=== PATIENT | male | born 1980 | race Caucasian/White ===

== ENCOUNTER 2021-04-26 18:26 | Observation (INO) ==
[2021-04-26] MEDS ORDERED: KETOROLAC 30 MG/ML VIAL IV ONE (18:46)
[2021-04-26] MEDS ORDERED: ONDANSETRON 4 MG/2 ML VIAL IV ONE (18:46)
[2021-04-26] MEDS ORDERED: 0.9 % SODIUM CHLORIDE 1,000 ML IV ONE (18:46)
--- NOTE | 2021-04-26 18:51 | Emergency Department Note ---
Male Urogenital HPI General Chief complaint: Flank Pain Stated complaint: flank pain Time Seen by Provider: 04/26/21 18:40 Source: patient Mode of arrival: ambulatory Limitations: no limitations History of Present Illness HPI Narrative: 40-year-old male presents with right flank pain. States he was diagnosed with a 8/2 mm right-sided kidney stone 3 days ago at [facility]. He states he was told to come to the [facility] see department if he did not feel better and passed the stone in 2 or 3 days. Patient continues to have flank pain on the right side sharp in nature. Nothing makes it better or worse. No radiation of the pain. He does have his stated nausea and vomiting. He has also had some subjective fevers and chills. Patient has long history of kidney stones. Patient ran out of pain medication yesterday. [facility] emergency department note from 04/23/[address] scan of abdomen pelvis with contrast performed on the day shows that the patient has an 8.5 mm right mid ureteral stone with hydronephrosis and hydroureter. Related Data Home Medications Medication Instructions Recorded Confirmed No Known Home Meds 04/26/21 04/26/21 Allergies Allergy/AdvReac Type Severity Reaction Status Date / Time No Known Drug Allergies Allergy Unverified 04/26/21 18:32 Review of Systems ROS ROS Narrative: Narrative: All systems ED: reviewed and negative except as stated. Constitutional: Denies fever, chills and sweats Eyes: Denies vision change Cardiovascular: Denies chest pain Respiratory: Denies shortness of breath and cough Gastrointestinal: Reports abdominal pain, nausea and vomiting Genitourinary: Reports hematuria and other (Right flank pain) Musculoskeletal: Denies back pain and joint pain Integumentary: Denies rash Neurological: Denies headache and dizziness Psychiatric: Denies anxiety, suicidal thoughts and homicidal thoughts Endocrine: Denies polydipsia and polyuria Hematological/Lymphatic: Denies easy bleeding and easy bruising PFSH Narrative Patient History Narrative: Narrative: Medical/Surgical/Family History All Active Problems (Updated 04/26/21 @ 20:33 by Emir May MD) Ureterolithiasis (Acute) Social History Smoking Status: Current every day smoker Exam Narrative Narrative: Vital Signs reviewed. Constitutional: Awake alert no acute distress well-nourished well-developed Head: Normocephalic, atraumatic Eyes: PERRLA, EOMI, no conjunctivitis Oropharynx: moist oral mucosa, no edema, no erythema, no exudate Neck: Supple, no lymphadenopathy, no JVD Lungs: Breathing unlabored, lungs clear Cardiac: Regular rate and rhythm, normal distal pulses, GI: Soft mild right flank tenderness nondistended no guarding no rebound Musculoskeletal: No tenderness no deformities, no edema, full range of motion Back: no CVA or midline tenderness Neuro: Awake alert, cranial nerves II through XII grossly intact, no focal motor or sensory deficits Psychiatric: Normal mood and affect Skin: Warm dry no rash, cap refill less than 2 seconds General Limitations: no limitations Course Consultations Consultation #1: Case discussed with urologist, Dr. Juarez who agrees to see the patient in consultation. He request the hospitalist be consulted to admit the patient. Time: 20:32 Consultation #2: Case discussed with hospitalist, Dr. Bell who agrees admit patient with consultation to urology. Time: 21:01 Vital Signs Vital signs: Vital Signs Temperature 98.6 F 04/26/21 18:27 Pulse Rate 75 04/26/21 18:27 Respiratory Rate 8 L 04/26/21 18:27 Blood Pressure 152/83 04/26/21 18:27 Pulse Oximetry (%) 97 04/26/21 18:27 Temperature 98.6 F 04/26/21 18:27 Pulse Rate 49 L 04/26/21 20:32 Respiratory Rate 8 L 04/26/21 18:27 Blood Pressure 119/60 04/26/21 20:32 Pulse Oximetry (%) 96 04/26/21 20:32 [facility] MDM Narrative Medical decision making narrative: Narrative: Differential Diagnosis Differential Diagnosis: Kidney stone, pyelonephritis, UTI Lab Data Result diagrams: 04/26/21 19:00 04/26/21 19:00 Labs: Lab Results 04/26/21 04/26/21 04/26/21 Range/Units 18:40 19:00 19:00 WBC 9.4 (4.5-11.0) K/mcL RBC 4.43 L (4.50-5.90) M/mcL Hgb 14.3 (13.5-16.5) g/dL Hct 40.1 L (41.0-55.0) % MCV 90.5 (80.0-100.0) fL MCH 32.3 (26.0-34.0) pg MCHC 35.7 (31.0-36.0) g/dL RDW 11.5 (11.5-14.5) % Plt Count 170 (140-440) K/mcL MPV 11.4 H (7.4-10.4) fL Seg Neutrophils % 64 (38-78) % Lymphocytes % 9 L (15-49) % Monocytes % (Manual) 24 H (1-12) % Eosinophils % (Manual) 3 (0-7) % Platelet Estimate Normal (Normal) RBC Morphology Normal (Normal) Sodium 136 (133-145) mmol/L Potassium 3.9 (3.3-5.1) mmol/L Chloride 104 (96-108) mmol/L Carbon Dioxide 23 (22-30) mmol/L Anion Gap 9.0 (8.0-16.0) BUN 21 H (6-20) mg/dL Creatinine 1.7 H (0.7-1.2) mg/dL GFR Calculation 49 Glucose 102 (70-105) mg/dL Calcium 8.6 (8.6-10.4) mg/dL Total Bilirubin 1.3 H (0.1-1.0) mg/dL AST 13 (<40) U/L ALT 17 (<40) U/L Alkaline Phosphatase 76 (39-117) U/L Total Protein 6.9 (5.9-8.4) gm/dL Albumin 3.7 (3.2-5.2) gm/dL Globulin 3.2 (2.2-3.7) gm/dL Albumin/Globulin Ratio 1.2 (1.0-2.3) Urine Color Davina Urine Appearance Clear (Clear) Urine pH 6.0 (5.0-9.0) Ur Specific [place] 1.028 (1.000-1.035) Urine Protein Negative (Negative) mg/dL Urine Glucose (UA) Negative (Negative) mg/dL Urine Ketones 80 A (Negative) mg/dL Urine Occult Blood 0.20 (Negative) mg/dL Urine Nitrate Negative (Negative) Urine Bilirubin Negative (Negative) mg/dL Urine Urobilinogen 4.0 A mg/dL Ur Leukocyte Esterase 25 A (Negative) /ug Urine RBC 32 H (0-3) /hpf Urine WBC 5 H (0-4) /hpf Ur Squamous Epith Cells 0 (0-4) /hpf Calcium Oxalate Crystal Many A (None) /hpf Urine Bacteria None (0) /hpf Urine Mucus Few A (None) /hpf Ur Culture Indicated? No Discharge Plan Patient/Caregiver Discharge Instructions Pt seen by [facility] only: No Clinical Impression: Ureterolithiasis Patient Disposition: Xfer As Outpt/Obs ([facility]) Condition: Fair Follow up with: No,PCP [Primary Care Provider] - Prescriptions: No Action No Known Home Meds RF: 0
[2021-04-26 19:43] LABS: Hematocrit 40.1 % (41.0-55.0); Hemoglobin 14.3 g/dL (13.5-16.5); Mean Cell Volume 90.5 fL (80.0-100.0); Mean Corpuscular HGB Conc 35.7 g/dL (31.0-36.0); Mean Platelet Volume 11.4 fL (7.4-10.4); Platelet Count 170 K/mcL (140-440); RBC 4.43 M/mcL (4.50-5.90); Red Cell Distribution Width 11.5 % (11.5-14.5); WBC 9.4 K/mcL (4.5-11.0)
[2021-04-26 19:52] LABS: Appearance,Urine CLEAR (Clear); Bilirubin,Urine Negative (Negative); Calcium Oxalate Crystals,Urine MANY /hpf; Color,Urine AMBER; Culture Indicated,Urine No; Glucose,Urine (UA) Negative (Negative); Ketones,Urine 80 mg/dL (Negative); Leukocyte Esterase,Urine 25 /ug (Negative); Mucus,Urine FEW /hpf; Nitrate,Urine Negative (Negative); Protein,Urine Negative (Negative); Specific Gravity,Urine 1.028 (1.000-1.035); Urine RBC 32 /hpf (0-3); Urine Squamous Epithelial Cell 0 /hpf (0-4); Urine WBC 5 /hpf (0-4)
[2021-04-26 20:09] LABS: Eosinophils % (Manual) 3 % (0-7); Lymphocytes % 9 % (15-49); Monocytes % (Manual) 24 % (1-12); Platelet Estimate NORMAL (Normal); RBC Morphology NORMAL (Normal); Segmented Neutrophils % 64 % (38-78)
[2021-04-26 20:20] LABS: ALT/SGPT 17 U/L (<40); AST/SGOT 13 U/L (<40); Albumin 3.7 gm/dL (3.2-5.2); Albumin/Globulin Ratio 1.2 (1.0-2.3); Alkaline Phosphatase 76 U/L (39-117); Bilirubin,Total 1.3 mg/dL (0.1-1.0); Blood Urea Nitrogen 21 mg/dL (6-20); Calcium 8.6 mg/dL (8.6-10.4); Carbon Dioxide 23 mmol/L (22-30); Chloride 104 mmol/L (96-108); Globulin 3.2 gm/dL (2.2-3.7); Glomerular Filtration Rate 49; Glucose 102 mg/dL (70-105)
--- NOTE | 2021-04-26 22:13 | Internal Med History&Physical ---
HPI History of Present Illness Patient information: Note initiated : 04/26/21 at 10:07 pm Service Date, if different from initiated Date Chief Complaint: [] Chief complaint: Right Flank pain for 3 days. History of present illness: Patient: Loi Forbes 40 y/o M admitted on for right flank pain for 3 days. He has Hx of Kidney stone in past. Pain started chris and progressively got worse. He had nausea and vomited x 1 also had hematuria. No fever, chills. His CT scan of A/p at [facility] today reportedly showed 8mm obstructed mid ureter stone with Mod hydronephrosis. Urology has been consulted and plan for Cystoscopy and Stent placement in am. Pt has no hx of lung or heart disease. He smokes a pack a day and drinks occasionally. Review of Systems All systems: reviewed and no additional remarkable complaints except as stated PFSH PFSH All Active Problems Ureterolithiasis (Acute) MEDS/ALLERGIES Home Medications and Allergies Home Medications Medication Instructions Recorded Confirmed Type No Known Home Meds 04/26/21 04/26/21 History Allergies Allergy/AdvReac Type Severity Reaction Status Date / Time No Known Drug Allergies Allergy Unverified 04/26/21 18:32 EXAM Constitutional Vitals: Temp Pulse Resp BP Pulse Ox 98.6 F 60 8 L 139/75 96 04/26/21 18:27 04/26/21 22:02 04/26/21 18:27 04/26/21 22:02 04/26/21 22:02 General appearance: cooperative and no acute distress Head Head exam: Present atraumatic, normal inspection and normocephalic Eye Eye exam: Present EOMI, normal appearance and PERRL Neck Neck exam: Present full ROM and normal inspection Respiratory Respiratory exam: Present normal respiratory exam and CTAB Cardiovascular Cardiovascular exam: Present normal rate and rhythm, +S1 and +S2; Absent diast olic murmur and systolic murmur GI/Abdominal GI/Abdominal exam: Present normal bowel sounds and soft; Absent hernia, mass, rebound and tenderness Extremities Exam Extremities exam: Present full ROM, normal capillary refill and normal inspection; Absent calf tenderness and joint swelling Back Exam Back exam: Present full ROM Neurological Exam Neurological exam: Present alert, CN II-XII intact, oriented X3 and reflexes normal Psychiatric Psychiatric exam: Present normal affect and normal mood Skin Skin exam: Present dry, normal color and warm DATA Data Completed and Pending Labs: Labs from last 24 hours 04/26/21 04/26/21 04/26/21 19:00 19:00 18:40 WBC 9.4 RBC 4.43 L Hgb 14.3 Hct 40.1 L MCV 90.5 MCH 32.3 MCHC 35.7 RDW 11.5 Plt Count 170 MPV 11.4 H Seg Neutrophils % 64 Lymphocytes % 9 L Monocytes % (Manual) 24 H Eosinophils % (Manual) 3 Platelet Estimate Normal RBC Morphology Normal Sodium 136 Potassium 3.9 Chloride 104 Carbon Dioxide 23 Anion Gap 9.0 BUN 21 H Creatinine 1.7 H GFR Calculation 49 Glucose 102 Calcium 8.6 Total Bilirubin 1.3 H AST 13 ALT 17 Alkaline Phosphatase 76 Total Protein 6.9 Albumin 3.7 Globulin 3.2 Albumin/Globulin Ratio 1.2 Urine Color Davina Urine Appearance Clear Urine pH 6.0 Ur Specific [place] 1.028 Urine Protein Negative Urine Glucose (UA) Negative Urine Ketones 80 A Urine Occult Blood 0.20 Urine Nitrate Negative Urine Bilirubin Negative Urine Urobilinogen 4.0 A Ur Leukocyte Esterase 25 A Urine RBC 32 H Urine WBC 5 H Ur Squamous Epith Cells 0 Calcium Oxalate Crystal Many A Urine Bacteria None Urine Mucus Few A Ur Culture Indicated? No A/P Narrative A/P Narrative: 40 years old male with known Hx of kidney stones presented with R flank pain for 3 dasys. # 8mm Obstructed R Ureter Kidney stone - IVF, Pain medication, Flomax. - NPO after midnight. Urology consulted for Cystoscopy and Stent in am. # BLANCA with Cr 1.7. No Know hx of CKD - UA unremarkable. - Cont IVF and Follow renal panel. Avoid Nephrotoxic agents. DVT Ppx. SCD Code. full Dispo: Observation. Plan of care d/ pt and his & CREDIT INTERN. Time Spent With Patient Time: Total time spent is greater than 50% in coordination of care (as doc umented) at patient's floor/unit and/or counseling patient: Total time spent with greater than 50% in coordination of care (as documented) at patient's floor/unit and/or counseling patient:: 15 - 24 minutes
[2021-04-26] MEDS ORDERED: ONDANSETRON 4 MG ODT TABLET SL PRN (22:30)
[2021-04-26] MEDS ORDERED: ONDANSETRON 4 MG/2 ML VIAL IV PRN (22:30)
[2021-04-26] MEDS ORDERED: ACETAMINOPHEN 325 MG TABLET PO PRN (22:30)
[2021-04-26] MEDS ORDERED: ZOLPIDEM 5 MG TABLET PO PRN (22:30)
[2021-04-26] MEDS ORDERED: TAMSULOSIN 0.4 MG CAPSULE PO ONE ×2 (22:35→23:01)
[2021-04-26] MEDS ORDERED: oxyCODONE HCL 5 MG TABLET PO ONE (22:56)
[2021-04-26] MEDS: oxyCODONE HCL 5 MG TABLET PO PRN (22:57)
[2021-04-26] MEDS: 0.45 % SODIUM CHLORIDE 1,000 ML IV SCH (22:57)
[2021-04-26] MEDS: TAMSULOSIN 0.4 MG CAPSULE PO SCH (22:59)
[2021-04-26] MEDS: HYDROmorphone 1 MG/ML SYRINGE IV PRN (23:22)
[2021-04-26] MEDS ORDERED: HYDROmorphone 1 MG/ML SYRINGE ONE (23:23)
[2021-04-27] MEDS ORDERED: HYDROmorphone 1 MG/ML SYRINGE ONE (03:28)
[2021-04-27] MEDS: HYDROmorphone 1 MG/ML SYRINGE IV PRN ×3 (03:28→09:26)
[2021-04-27] MEDS: 0.9 % SODIUM CHLORIDE 10 ML SYRINGE IV SCH ×3 (05:46→22:49)
[2021-04-27] MEDS: 0.45 % SODIUM CHLORIDE 1,000 ML IV SCH ×4 (06:43→22:49)
[2021-04-27 07:33] LABS: Blood Urea Nitrogen 24 mg/dL (6-20); Calcium 8.1 mg/dL (8.6-10.4); Carbon Dioxide 21 mmol/L (22-30); Chloride 103 mmol/L (96-108); Glomerular Filtration Rate 46; Glucose 81 mg/dL (70-105)
[2021-04-27] MEDS ORDERED: IPRATROPIUM/ALBUTEROL 3 ML AMPUL.NEB NEB PRN ×2 (09:21→13:23)
--- NOTE | 2021-04-27 09:52 | EKG ---
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 Measurements Intervals [place] Rate: 49 P: 21 [place]: 172 QRS: 12 QRSD: 92 T: 13 QT: 420 QTc: 380 Interpretive Statements SINUS BRADYCARDIA ST ELEV, PROBABLE NORMAL EARLY REPOL PATTERN NO PRIOR TRACING FOR COMPARISON ([facility] not responding) NORMAL TRACING Electronically Signed On 04-27-2021 9:52:25 PDT by Brendan Lockett M.D. /[email or web address]/[email or web address]/[id number]
[2021-04-27] MEDS ORDERED: ceFAZolin 2 GM in DEXTROSE 5% IN WATER 50 ML IV SCH (12:00)
[2021-04-27] MEDS ORDERED: GLYCOPYRROLATE 0.2 MG/ML VIAL IV ONE (12:17)
[2021-04-27] MEDS ORDERED: LIDOCAINE HCL/PF 100 MG/5 ML SYRINGE IV ONE (12:17)
[2021-04-27] MEDS ORDERED: MIDAZOLAM 2 MG/2 ML VIAL ONE (12:17)
[2021-04-27] MEDS ORDERED: ONDANSETRON 4 MG/2 ML VIAL ONE (12:17)
[2021-04-27] MEDS ORDERED: fentaNYL 250 MCG/5 ML VIAL IV ONE (12:17)
[2021-04-27] MEDS ORDERED: DEXAMETHASONE 10 MG/ML VIAL ONE (12:17)
[2021-04-27 12:27] LABS: Prothrombin Time 13.5 sec (11.9-14.5)
[2021-04-27] MEDS ORDERED: IOVERSOL 20 ML VIAL IJ ONE (12:52)
--- NOTE | 2021-04-27 13:15 | Brief Operative Note ---
Brief Operative Note Date of procedure: 04/27/21 Pre-op diagnosis: Right ureteral stone Post-op diagnosis: other (Right renal stone) Procedure: Right ureteroscopy and stent placement Grafts/Implants: Yes Anesthesia: GETA Findings: Large upper ureteral stone pushed back up into the upper pole of the kidney Complications: none Surgeon: Gilles Juarez Estimated blood loss (cc): 0 Tourniquet Time (Minutes): 0 Specimens Removed/Pathology: none sent Condition: stable Disposition: PACU
--- NOTE | 2021-04-27 13:20 | Operative Note ---
Operative Note Operative Note: Preop diagnosis--right ureteral stone Surgeon--Gilles Juarez Operation performed--right ureteroscopy with stent placement Postop diagnosis --right renal calculus Date of operation and dictation--04/27/2021 Anesthesia--General Complications--none Specimen--none Drain--6 Nicaraguan by 24 cm double-J stent with string Blood loss--none Indication--this 40-year-old male has a history of stones and had recent onset of right-sided flank pain which was severe. He was admitted for pain control and is in at this time for intervention to consist of stenting at the minimum or total lithotripsy of the stone as best case. It is an 8.5 mm stone in the right upper third ureter Description--the patient was placed on the operating table in a supine position. A timeout was called at which time we confirmed the patient, procedure, position and presence of antibiotic. He was placed in a lithotomy position after satisfactory induction of general anesthesia. After standard prep and drape a 21 Nicaraguan cystoscope was advanced into the bladder under direct vision. The urethra was normal prostate showed mild enlargement of the middle lobe. The bladder was entered and the right ureteral orifice was identified. It was relatively close to the bladder neck and a somewhat difficult to cannulate but ultimately an open tip catheter was feet fed into the orifice and up to the level of the stone. Contrast was injected and the stone was identified with significant dilation of the proximal ureter. And safety tip guidewire was advanced through the open tip catheter and in an attempt to bypass the stone the stone was dislodged and moved into the upper portion of the kidney in a calyx that was at an angle to the renal pelvis. The semirigid scope was then advanced over a second guidewire fed through the ureteroscope. It was advanced up to where the stone had been and up into the kidney. The stone was not identified and at that point the ureter was quite stenotic and it was difficult to move in different angles and there was a significant resistance upon slow withdrawal of the scope. At that point it was elected not to pursue the stone any further and the ureteroscope was removed along with the second guidewire. A 6 Nicaraguan by 24 cm double-J stent with string was advanced over the guidewire and ultimately advanced up into the kidney where a good coil was seen upon slow withdrawal of the wire. Once the wire was completely withdrawn there was good coil in the bladder. At that point the bladder was emptied and the scope was removed. The final position of the stent was confirmed on x-ray and the string was shortened to just outside the urethral meatus.
[2021-04-27] MEDS ORDERED: MEPERIDINE 25 MG/ML VIAL IV PRN (13:23)
[2021-04-27] MEDS ORDERED: ePHEDrine 50 MG/ML AMPUL IV PRN (13:23)
[2021-04-27] MEDS ORDERED: diphenhydrAMINE 50 MG/ML VIAL IV PRN (13:23)
[2021-04-27] MEDS ORDERED: ATROPINE SULFATE 0.4 MG/ML VIAL IV PRN (13:23)
[2021-04-27] MEDS ORDERED: FLUMAZENIL 0.1 MG/ML ML IV PRN (13:23)
[2021-04-27] MEDS ORDERED: METHOCARBAMOL 1,000 MG/10 ML VIAL IV PRN (13:23)
[2021-04-27] MEDS ORDERED: NALOXONE HCL 0.4 MG/ML VIAL IV PRN (13:23)
[2021-04-27] MEDS ORDERED: ONDANSETRON 4 MG/2 ML VIAL IV PRN (13:23)
[2021-04-27] MEDS ORDERED: fentaNYL 100 MCG/2 ML VIAL IV PRN (13:23)
[2021-04-27] MEDS ORDERED: ACETAMINOPHEN 1,000 MG/100 ML BAG IV ONE (13:23)
[2021-04-27] MEDS ORDERED: LACTATED RINGERS 1,000 ML IV SCH (13:30)
[2021-04-27] MEDS ORDERED: 0.9 % SODIUM CHLORIDE 10 ML SYRINGE IV SCH (14:00)
--- NOTE | 2021-04-27 16:58 | Internal Med Progress Note ---
SUBJECTIVE Subjective Patient information: Note initiated : 04/27/21 at 4:55 pm Service Date, if different from initiated Date: Patient: Loi Forbes 40 y/o M admitted on 04/26/21 for Flank Pain . Chief Complaint: Flank pain Interval history: Patient is feeling better. Her pain is well controlled. Status post cystoscopy and stent placement. Creatinine went up to 1.8 from 1.7. No nausea vomiting Constitutional Vitals: Vital Signs Temp Pulse Resp BP Pulse Ox 98.0 F 58 L 18 127/63 96 04/27/21 16:00 04/27/21 16:00 04/27/21 16:00 04/27/21 16:00 04/27/21 16:00 Period Temp Pulse Resp BP Sys/Ybarra Pulse Ox Last 24 Hr 97.9 F-98.6 F 49-75 8-20 107-155/57-92 95-99 Intake and Output 04/27/21 04/27/21 04/27/21 05:59 13:59 21:59 Intake Total 0 1571 1100 Output Total 175 350 Balance -175 1221 1100 Weight 98.157 kg Intake & Output: Intake & Output 04/27/21 04/27/21 04/27/21 05:59 13:59 21:59 Intake Total 0 1571 1100 Output Total 175 350 Balance -175 1221 1100 Weight 98.157 kg Intake: IV 1021 1100 Sodium Chloride 0.45% 1,000 ml 971 1000 @ 125 mls/hr IV .Q8H NAVEED Rx#: [id number] Ancef 2 gm In Dextrose 5% in 50 Water 50 ml @ 100 mls/hr IV PREOP NAVEED Rx#:[id number] Oral 0 IV - Manual Only 550 Output: Void Amount 175 350 Other: Urine Appearance Clear Hematuria Small Blood Clots Urine Color Light Davina Bright Red General appearance: cooperative and no acute distress Head Head exam: Present atraumatic, normal inspection and normocephalic Eye Eye exam: Present EOMI, normal appearance and PERRL Neck Neck exam: Present full ROM and normal inspection Respiratory Respiratory exam: Present normal respiratory exam and CTAB Cardiovascular Cardiovascular exam: Present normal rate and rhythm, +S1 and +S2; Absent diastolic murmur and systolic murmur GI/Abdominal GI/Abdominal exam: Present normal bowel sounds and soft; Absent hernia, mass, rebound and tenderness Extremities Exam Extremities exam: Present full ROM, normal capillary refill and normal inspection; Absent calf tenderness and joint swelling Back Exam Back exam: Present full ROM Neurological Exam Neurological exam: Present alert, CN II-XII intact, oriented X3 and reflexes normal Psychiatric Psychiatric exam: Present normal affect and normal mood Skin Skin exam: Present dry, normal color and warm OBJ DATA Labs CBC & Chem 7: 04/26/21 19:00 04/27/21 05:33 Labs: Abnormal Lab Results 04/27/21 04/26/21 04/26/21 05:33 19:00 19:00 RBC 4.43 L Hct 40.1 L MPV 11.4 H Lymphocytes % 9 L Monocytes % (Manual) 24 H Carbon Dioxide 21 L BUN 24 H 21 H Creatinine 1.8 H 1.7 H Calcium 8.1 L Total Bilirubin 1.3 H Urine Ketones Urine Urobilinogen Ur Leukocyte Esterase Urine RBC Urine WBC Calcium Oxalate Crystal Urine Mucus 04/26/21 18:40 RBC Hct MPV Lymphocytes % Monocytes % (Manual) Carbon Dioxide BUN Creatinine Calcium Total Bilirubin Urine Ketones 80 A Urine Urobilinogen 4.0 A Ur Leukocyte Esterase 25 A Urine RBC 32 H Urine WBC 5 H Calcium Oxalate Crystal Many A Urine Mucus Few A Meds: Medications Acetaminophen (Acetaminophen 325 Mg Tablet) 650 mg PO Q6HP PRN; Protocol PRN Reason: Per Pain Protocol/Fever > 101 Hydromorphone HCl (Hydromorphone 1 Mg/Ml Syringe) 1 mg IV Q2HP PRN; Protocol PRN Reason: Per Pain Protocol Last Admin: 04/27/21 09:26 Dose: 1 mg Documented by: Sodium Chloride (Sodium Chloride 0.45%) 1,000 mls @ 125 mls/hr IV .Q8H [facility] Last Infusion: 04/27/21 16:28 Dose: Infused Documented by: Cefazolin Sodium 2 gm/ (Dextrose) 50 mls @ 100 mls/hr IV PREOP NAVEED; Protocol Stop: 04/27/21 17:00 Last Infusion: 04/27/21 12:52 Dose: Infused Documented by: Ondansetron HCl (Ondansetron 4 Mg/2 Ml Vial) 4 mg IV Q6HP PRN PRN Reason: Nausea And Vomiting Ondansetron HCl (Ondansetron 4 Mg Odt Tablet) 4 mg SL Q6HP PRN PRN Reason: Nausea And Vomiting Oxycodone HCl (Oxycodone Hcl 5 Mg Tablet) 5 mg PO Q4HP PRN; Protocol PRN Reason: Per Pain Protocol Last Admin: 04/26/21 22:57 Dose: 5 mg Documented by: Pneumococcal Polyvalent Vaccine (Pneumococcal 23-Armida P-Sac Vac 0.5 Ml Syringe) 0.5 ml IM .ONCE ONE Stop: 04/28/21 10:01 Sodium Chloride (0.9 % Sodium Chloride 10 Ml Syringe) 10 ml IV Q8 [facility] Last Admin: 04/27/21 14:15 Dose: Not Given Documented by: Sodium Chloride (0.9 % Sodium Chloride 10 Ml Syringe) 5 ml IV Q8 [facility] Last Admin: 04/27/21 14:15 Dose: Not Given Documented by: Tamsulosin HCl (Tamsulosin 0.4 Mg Capsule) 0.8 mg PO HS [facility] Last Admin: 04/26/21 22:59 Dose: 0.8 mg Documented by: Zolpidem Tartrate (Zolpidem 5 Mg Tablet) 5 mg PO HSP PRN PRN Reason: Insomnia A/P Narrative A/P Narrative: 40 years old male with known Hx of kidney stones presented with R flank pain for 3 dasys. # 8mm Obstructed R Ureter Kidney stone - IVF, Pain medication, Flomax. - S/p right ureteroscopy with 6 Bangladeshi by 24 cm double-J stent with string placement 04/27 - Pain control and OP follow up with # BLANCA with Cr 1.7. No Know hx of CKD - Cr went up to 1.8. Not peaked yet. - UA unremarkable. - Cont IVF and Follow renal panel. Avoid Nephrotoxic agents. - Repeat BMP in am. DVT ppx. Ambulation Code. Full Dispo . Home if renal function improved. Time Spent With Patient Time: Total time spent is greater than 50% in coordination of care (as documented) at patient's floor/unit and/or counseling patient: QUALITY VTE Deep Vein Thrombosis/Pulmonary Embolism Present on Admission: No
[2021-04-27] MEDS ORDERED: NICOTINE 14 MG PATCH TOPICAL ONE (17:25)
--- NOTE | 2021-04-27 18:10 | XRay Report ---
CLINICAL INFORMATION: Right ureteroscopy with stent placement COMPARISON: None. FINDINGS: Single digital radiograph of the OR shows a proximal end of a right pigtail catheter overlying the right upper collecting system. A small amount of contrast present in the right upper collecting system but nondiagnostic IMPRESSION: Right ureteral stent in place. Total fluoroscopy time 1.1 minutes. Interpreted and Authenticated by: Yayo Richter 04/27/21
[2021-04-27] MEDS: oxyCODONE HCL 5 MG TABLET PO PRN (19:37)
[2021-04-27] MEDS: TAMSULOSIN 0.4 MG CAPSULE PO SCH (21:52)
[2021-04-28] MEDS: 0.45 % SODIUM CHLORIDE 1,000 ML IV SCH (01:39)
[2021-04-28] MEDS: oxyCODONE HCL 5 MG TABLET PO PRN (04:28)
[2021-04-28] MEDS: 0.9 % SODIUM CHLORIDE 10 ML SYRINGE IV SCH (06:07)
[2021-04-28 07:18] LABS: Blood Urea Nitrogen 18 mg/dL (6-20); Calcium 8.5 mg/dL (8.6-10.4); Carbon Dioxide 21 mmol/L (22-30); Chloride 104 mmol/L (96-108); Glomerular Filtration Rate 83; Glucose 110 mg/dL (70-105)
--- NOTE | 2021-04-28 08:51 | Discharge Summary ---
Discharge Provider Provider Patient information: Note initiated : 04/28/21 at 8:46 am Service Date, if different from initiated Date: Patient: oLi Forbes 40 y/o M admitted on 04/26/21 for Flank Pain . Chief Complaint: Flank pain, Kidney stone Date of admission: 04/26/21 22:28 Discharge date: 04/28/21 Primary care physician: PCP No Consults: 04/26/21 Consult to Physician [CONS] Stat Comment: Consulting Provider: Papa Mcnally Reason For Exam: Physician to Consult 04/26/21 20:53 Consult to Physician [CONS] Routine Comment: Consulting Provider: Gilles Juarez Reason For Exam: Physician to Consult Discharge Meds Discharge Medications Home Medications tamsulosin [Flomax] 0.8 mg PO QHS #60 cap 04/27/21 [Rx Last Taken Unknown] oxycodone 5 mg PO Q4HP PRN #12 tab 04/28/21 [Rx Last Taken Unknown] tamsulosin 0.8 mg PO HS #15 cap 04/28/21 [Rx Last Taken Unknown] COURSE Hospital Course Hospital course: 40 years old male with known Hx of kidney stones presented with R flank pain for 3 dasys. # 8mm Obstructed R Ureter Kidney stone - Treated with IVF, Pain medication, Flomax. - S/p right ureteroscopy with 6 Hungarian by 24 cm double-J stent with string placement 04/27 - Pain control and OP follow up with in 1-2 weeks as directed by urologist. # BLANCA with peaked Cr 1.8. No Know hx of CKD - UA unremarkable. - Treated IVF and . Cr normalized to 1.1 in am BUN 18. Avoid NSAIDs. OP follow up. Disposition: Patient discharged home Condition on discharge: Hemodynamically stable. Tolerated p.o. Discharge activity: As tolerated Discharge diet: Healthy, low-fat Discharge medication: See med reconciliation form Discharge follow-up: Primary care physician within 1 week for post hospital follow-up. Urologist in 1 to 2 weeks. Discharge diagnosis: Obstructed Kidney stone, BLANCA Time spent discussing smoking cessation with patient: 3 to 10 minutes Time Spent with Patient Time attestation: Total time spent providing and/or coordinating discharge services: EXAM Constitutional Vitals: Temp Pulse Resp BP Pulse Ox 98.1 F 50 L 20 155/81 96 04/28/21 07:49 04/28/21 07:49 04/28/21 07:49 04/28/21 07:49 04/28/21 07:49 General appearance: cooperative and no acute distress Head Head exam: Present atraumatic, normal inspection and normocephalic Eye Eye exam: Present EOMI, normal appearance and PERRL Neck Neck exam: Present full ROM and normal inspection Respiratory Respiratory exam: Present normal respiratory exam and CTAB Cardiovascular Cardiovascular exam: Present normal rate and rhythm, +S1 and +S2; Absent diastolic murmur and systolic murmur GI/Abdominal GI/Abdominal exam: Present normal bowel sounds and soft; Absent hernia, mass, rebound and tenderness Extremities Exam Extremities exam: Present full ROM, normal capillary refill and normal inspection; Absent calf tenderness and joint swelling Back Exam Back exam: Present full ROM Neurological Exam Neurological exam: Present alert, CN II-XII intact, oriented X3 and reflexes normal Psychiatric Psychiatric exam: Present normal affect and normal mood Skin Skin exam: Present dry, normal color and warm Discharge Data Data Completed and Pending Labs on day of discharge: Labs from last 24 hours 04/28/21 04/27/21 05:35 09:32 PT 13.5 INR 1.0 Sodium 136 Potassium 4.2 Chloride 104 Carbon Dioxide 21 L Anion Gap 11.0 BUN 18 Creatinine 1.1 GFR Calculation 83 Glucose 110 H Calcium 8.5 L Discharge Plan Patient/Caregiver Discharge Instructions Instructions: Tamsulosin (By mouth), Kidney Stones (DC), Lithotripsy (DC) Activity Restrictions/Additional Instructions: Resume home diet as tolerated. Increase activity as tolerated. You may experience bloody urine for a few days. 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 You will need to be scheduled for outpatient procedure - an extracorporeal shock wave lithotripsy (ESWL). You will need to call tomorrow to [phone] ext #[phone] to see about a specific date and time for this procedure. Follow up appt. with Dr. Juarez in 2 weeks. Take all medication as directed. You may take [id number] Motrin 800 mg every 8 hours as needed for pain or 500 mg Tylenol every 6 hrs as needed for pain. Return to ER for fever, chills, uncontrolled pain, inability to urinate or have a bowel movement, nausea and/or vomiting, swelling, redness, signs of infection, shortness of breath, chest pain, return of symptoms, or other acute symptom. This discharge packet is provided to you to help keep you informed about your care. We want to ensure you get everything you need when you go home. You will also be receiving a call from us in a few days to follow up with you and see how you are doing since your discharge. This gives us a chance to listen to any concerns you maybe experiencing since you were discharged or any additional needs you may have, as well as providing us feedback on your care experience. We strive to always provide excellent care and thank you for your feedback and for choosing [facility]. Prescriptions: New tamsulosin [Flomax] 0.4 mg Capsule 0.8 mg PO QHS Qty: 60 RF: 0 tamsulosin 0.4 mg Capsule 0.8 mg PO HS Qty: 15 RF: 0 oxycodone 5 mg Tablet 5 mg PO Q4HP PRN (Reason: Per Pain Protocol) Qty: 12 RF: 0 Follow Up Plan Follow up with: Gilles Juarze MD [Physician] - 05/11/21 1:30 pm Patient Disposition: Home, Self-Care Prognosis: Fair Discharge Orders: Discharge Order (Routine); Ordered 04/28/21 Ordered By: Papa Mcnally QUALITY VTE Deep Vein Thrombosis/Pulmonary Embolism Present on Admission: No
[2021-04-28] MEDS ORDERED: CALCIUM CARBONATE 500 MG TAB.CHEW CHEWED ONE (09:43)
[2021-04-28] MEDS ORDERED: PNEUMOCOCCAL 23-VAL P-SAC VAC 0.5 ML SYRINGE IM ONE (10:00)
== END 2021-04-28 10:05 | disposition home or self-care (01) ==
LOC: MEDSUR 18:26 → ED 18:26 → MEDSUR 22:33
PROVIDERS: ADMIT Internal Medicine; ATTEND Urology